=== PATIENT | female | born 1995 | race Caucasian/White ===

== ENCOUNTER 2016-11-19 21:17 | Emergency (ER) | payer OTHER, MEDICAID ==
[~2016-11-19] VITALS: Ht 162.5 cm; Wt 67.1 kg
[~2016-11-19 21:17] MED LIST: AMOXICILLIN500 MG PO; BACTRIM DS 8001 TA1 PO; COLACE100 MG PO; COMPAZINE10 MG PO; IRON325 M1 PO; KEFLEX500 MG PO; MACROBID100 M1 PO; NITROFURANTOIN100 M1 PO; NO DAILY MEDS; PRENATAL1 TA3 PO; PYRIDIUM100 MG PO; PYRIDIUM200 MG PO; TRAMADOL HCL50 MG PO; VICODIN 500 MG-1 TAB PO; ZANTAC150 MG PO; ZOFRAN ODT4 MG PO; ZOFRAN ODT4 MG SL
[2016-11-19 22:17] LABS: BILIRUBIN NEGATIVE (NEGATIVE); BLOOD NEGATIVE (NEGATIVE); CLARITY SL CLOUDY (CLEAR); COLOR YELLOW (YELLOW); GLUCOSE NEGATIVE (NEGATIVE); KETONE 1+ (NEGATIVE); LEUKO ESTERASE NEGATIVE (NEGATIVE); NITRITE POSITIVE (NEGATIVE); PROTEIN NEGATIVE (NEGATIVE); UROBILINOGEN 0.2 E.U./dl (0.2-1.0)
[2016-11-19 22:24] LABS: BACTERIA 4+; RBC 0-2 rbc/hpf (0-2)
[2016-11-19 22:25] LABS: URINE REFLEX COMMENT YES (NO)
[2016-11-19] MEDS ORDERED: DICLEGIS DR 101 EACH PO (22:39)
[2016-11-19] MEDS ORDERED: OMNICEF300 MG PO (22:39)
== END 2016-11-19 23:53 | disposition home or self-care (01) ==
LOC: ED 21:17
PROVIDERS: Physician Assistant
DX: O23.41 Unspecified infection of urinary tract in pregnancy, first trimester (principal); R11.2 Nausea with vomiting, unspecified; Z88.6 Allergy status to analgesic agent; Z90.49 Acquired absence of other specified parts of digestive tract; Z3A.09 9 weeks gestation of pregnancy

== ENCOUNTER 2016-12-02 20:04 | Emergency (ER) | payer OTHER, MEDICAID ==
[~2016-12-02] VITALS: Ht 162.5 cm; Wt 67.6 kg
[~2016-12-02 20:04] MED LIST changes: +DICLEGIS DR 101 EACH PO; +OMNICEF300 MG PO
[2016-12-02] MEDS ORDERED: PRENATAL1 TA3 PO (21:06)
== END 2016-12-02 22:59 | disposition home or self-care (01) ==
LOC: ED 20:04
DX: O9A.211 Injury, poisoning and certain other consequences of external causes complicating pregnancy, first trimester (principal); S40.011A Contusion of right shoulder, initial encounter; S40.022A Contusion of left upper arm, initial encounter; Y08.89XA Assault by other specified means, initial encounter; Y93.89 Activity, other specified; Y92.9 Unspecified place or not applicable; Y99.9 Unspecified external cause status; Z88.6 Allergy status to analgesic agent; Z3A.08 8 weeks gestation of pregnancy

== ENCOUNTER 2016-12-23 13:48 | Emergency (ER) | payer OTHER ==
[~2016-12-23] VITALS: Ht 162.5 cm; Wt 65.8 kg
[2016-12-23 14:12] LABS: BILIRUBIN NEGATIVE (NEGATIVE); BLOOD 1+ (NEGATIVE); CLARITY CLOUDY (CLEAR); COLOR YELLOW (YELLOW); GLUCOSE NEGATIVE (NEGATIVE); KETONE 3+ (NEGATIVE); LEUKO ESTERASE 2+ (NEGATIVE); NITRITE POSITIVE (NEGATIVE); PROTEIN 2+ (NEGATIVE)
[2016-12-23 14:20] LABS: EPITHELIAL CELLS TNTC; RBC 0-2 rbc/hpf (0-2); WBC 31-40 wbc/hpf (0-5)
[2016-12-23 14:21] LABS: BACTERIA 4+; URINE REFLEX COMMENT YES (NO)
[2016-12-23 14:57] LABS: BASO % 0.1 % (0.0-1.0); HEMATOCRIT 35.2 % (37.0-47.0); HEMOGLOBIN 11.9 g/dl (12.0-16.0); IG # 0.1 10*3/uL (0.0-0.1); LYMPH # 1.3 10*3/uL (1.3-4.4); LYMPH % 10.1 % (27.0-41.0); MEAN CELL VOLUME 88.9 fl (81.0-99.0); MEAN CORPUSCULAR HGB 30.1 pg (27.0-31.0); MEAN CORPUSCULAR HGB CONC 33.8 g/dl (33.0-37.0); MEAN PLATELET VOLUME 10.8 fl (9.6-12.3); MONO # 1.2 10*3/uL (0.1-1.0); MONO % 9.4 % (3.0-9.0); NEUT # 10.5 10*3/uL (2.3-7.9); PLATELET COUNT AUTOMATED 188 10*3/uL (130-400); RED BLOOD COUNT 3.96 10*6/uL (4.10-5.10); RED CELL DISTRI WIDTH 12.7 % (0-14.5); WHITE BLOOD COUNT 13.1 10*3/uL (4.8-10.8)
[2016-12-23 15:11] LABS: ALKALINE PHOSPHATASE 75 U/L (45-117); BILIRUBIN, TOTAL 0.4 mg/dl (0.2-1.0); BUN 4 mg/dl (7-24); CARBON DIOXIDE 25 mmol/L (21-32); CHLORIDE 97 mmol/L (98-107); EST GLOM FILT AFRICAN AMERICAN > 60 ml/min; GLUCOSE 98 mg/dL (65-99); POTASSIUM 3.9 mmol/L (3.5-5.1); SGOT/AST 6 IU/L (3-35); SGPT/ALT 15 U/L (12-78); SODIUM 132 mmol/L (136-145); TOTAL PROTEIN 7.1 gm/dL (6.4-8.2)
[2016-12-23] MEDS ORDERED: MACROBID100 M1 PO (19:20)
== END 2016-12-23 21:37 | disposition home or self-care (01) ==
LOC: ED 13:48
PROVIDERS: Physician Assistant
DX: O23.41 Unspecified infection of urinary tract in pregnancy, first trimester (principal); Z88.6 Allergy status to analgesic agent; Z79.899 Other long term (current) drug therapy; Z3A.12 12 weeks gestation of pregnancy

== ENCOUNTER 2017-08-26 15:30 | Emergency (ER) | payer OTHER ==
[~2017-08-26] VITALS: Ht 162.5 cm; Wt 70.3 kg
== END 2017-08-26 17:04 | disposition home or self-care (01) ==
LOC: ED 15:30
DX: S50.12XA Contusion of left forearm, initial encounter (principal); S60.211A Contusion of right wrist, initial encounter; Z98.890 Other specified postprocedural states; Z90.49 Acquired absence of other specified parts of digestive tract; Z88.6 Allergy status to analgesic agent; W19.XXXA Unspecified fall, initial encounter; Y93.89 Activity, other specified; Y92.59 Other trade areas as the place of occurrence of the external cause; Y99.9 Unspecified external cause status

== ENCOUNTER 2017-09-01 12:28 | Emergency (ER) | payer OTHER ==
[~2017-09-01] VITALS: Ht 165.1 cm; Wt 68.0 kg
== END 2017-09-01 14:34 | disposition home or self-care (01) ==
LOC: ED 12:28
DX: S90.31XA Contusion of right foot, initial encounter (principal); Z98.890 Other specified postprocedural states; Z79.899 Other long term (current) drug therapy; Z88.6 Allergy status to analgesic agent; W20.8XXA Other cause of strike by thrown, projected or falling object, initial encounter; Y93.89 Activity, other specified; Y92.89 Other specified places as the place of occurrence of the external cause; Y99.9 Unspecified external cause status

== ENCOUNTER 2018-06-12 13:54 | Inpatient (IN) | payer OTHER ==
--- NOTE | ~2018-06-12 | EKG ---
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
[2018-06-12 13:54] VITALS: BP 159/108
[2018-06-12 14:25] LABS: BASO % 0.3 % (0.0-1.0); EOS % 0.3 % (1.0-4.0); HEMATOCRIT 38.7 % (37.0-47.0); HEMOGLOBIN 13.5 g/dl (12.0-16.0); LYMPH # 2.2 10*3/uL (1.3-4.4); LYMPH % 29.1 % (27.0-41.0); MEAN CELL VOLUME 88.4 fl (81.0-99.0); MEAN CORPUSCULAR HGB 30.8 pg (27.0-31.0); MEAN CORPUSCULAR HGB CONC 34.9 g/dl (33.0-37.0); MEAN PLATELET VOLUME 9.9 fl (9.6-12.3); MONO # 0.5 10*3/uL (0.1-1.0); MONO % 6.5 % (3.0-9.0); NEUT # 4.7 10*3/uL (2.3-7.9); NEUT % 62.7 % (47.0-73.0); PLATELET COUNT AUTOMATED 263 10*3/uL (130-400); RED BLOOD COUNT 4.38 10*6/uL (4.10-5.10); RED CELL DISTRI WIDTH 14.1 % (0-14.5); WHITE BLOOD COUNT 7.5 10*3/uL (4.8-10.8)
[2018-06-12 14:34] LABS: ACT PARTIAL THROMBO TIME 20.2 SECONDS (20.8-31.5)
[2018-06-12 14:41] LABS: ALKALINE PHOSPHATASE 77 U/L (45-117); BUN 13 mg/dl (7-24); CHLORIDE 102 mmol/L (98-107); CREATININE 1.06 mg/dL (0.55-1.02); POTASSIUM 3.5 mmol/L (3.5-5.1); SGOT/AST 139 IU/L (3-35); SGPT/ALT 179 U/L (12-78); SODIUM 139 mmol/L (136-145); TOTAL PROTEIN 7.5 gm/dL (6.4-8.2)
[2018-06-12 14:43] LABS: B-hCG (QUALITATIVE) NEGATIVE (NEGATIVE); ETHYL ALCOHOL < 3.0 mg/dl (<3); TROPONIN I 0.016 ng/ml (<0.045)
[2018-06-12 14:45] VITALS: BP 152/102
[2018-06-12 15:11] VITALS: BP 154/108
[2018-06-12 15:58] VITALS: BP 144/106
[2018-06-12 16:06] LABS: BILIRUBIN NEGATIVE (NEGATIVE); BLOOD TRACE-INTACT (NEGATIVE); CLARITY SL CLOUDY (CLEAR); COLOR YELLOW (YELLOW); GLUCOSE 1+ (NEGATIVE); KETONE NEGATIVE (NEGATIVE); LEUKO ESTERASE NEGATIVE (NEGATIVE); NITRITE NEGATIVE (NEGATIVE); SPECIFIC GRAVITY 1.025 (1.005-1.030); UROBILINOGEN 0.2 E.U./dl (0.2-1.0)
[2018-06-12 16:10] LABS: URINE AMPHETAMINES > 1000 (1000ng/ml); URINE BARBITURATES < 200 (200ng/ml); URINE BENZODIAZEPINES < 200 (200ng/ml); URINE CANNABINOIDS (THC) > 50 (50ng/ml); URINE COCAINE > 300 (300ng/ml); URINE METHADONE < 300 (300ng/ml); URINE OPIATES < 300 (300ng/ml)
[2018-06-12 16:11] LABS: URINE PHENCYCLIDINE < 25 (25ng/ml)
[2018-06-12 16:19] LABS: BACTERIA 3+
[2018-06-12 16:40] VITALS: BP 148/106
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
--- NOTE | 2018-06-12 17:36 | NUR ---
Dr. Mcpherson was notified of elevated troponin. Admission orders were recieved. Keo Hernandez was notified of SS consult.
[2018-06-12 20:00] VITALS: BP 146/88
--- NOTE | 2018-06-12 20:06 | NUR ---
PT. RESTING IN BED TEXTING AND TALKING TO SISTER/VISITOR. IVF CONTINUE ORDERED VIA BAKARI, SITE ASYMPT. LUNGS CLEAR BILAT, UNABLE TO TAKE DEEP BREATH DUE TO PRIOR CPR SORENESS. ABDOMEN SOFT, NONDISTENDED AND NORMO. NO PERIPHERAL EDEMA NOTED. RESP. EASY AND REG, NO DISTRESS. ALISHA TADEO RN
--- NOTE | 2018-06-12 22:19 | NUR ---
PT'S IV REMOVED DUE TO PT STATING PAIN AT SITE FROM BENDING ARM (IV SITE IN BAKARI). PT. STATED BLEEDING AT SITE, LEAKING IVF IN REALITY. NEW IV ATTEMPT TO BE INSERTED. DR. SZYMANSKI NOTIFIED OF PT'S DESIRE TO LEAVE AMA. HR 120-130'S, B/P 140-150'S/90-100'S. DR. SZYMANSKI PINK-SLIPPED UNTIL STABLE. WILL RE-EVALUATED IN AM. PT. INFORMED SHE CANNOT LEAVE AND MUST STAY THE NIGHT UNTIL RE-EVALUATED IN AM. ALISHA TADEO RN
[2018-06-13] VITALS: BP 125/77
[2018-06-13 04:00] VITALS: BP 127/86
[2018-06-13 04:57] LABS: BASO % 0.2 % (0.0-1.0); EOS # 0.1 10*3/uL (0.0-0.4); EOS % 0.8 % (1.0-4.0); HEMATOCRIT 33.6 % (37.0-47.0); LYMPH # 3.3 10*3/uL (1.3-4.4); LYMPH % 36.1 % (27.0-41.0); MEAN CELL VOLUME 90.3 fl (81.0-99.0); MEAN CORPUSCULAR HGB 30.1 pg (27.0-31.0); MEAN CORPUSCULAR HGB CONC 33.3 g/dl (33.0-37.0); MEAN PLATELET VOLUME 10.6 fl (9.6-12.3); MONO # 0.9 10*3/uL (0.1-1.0); MONO % 9.4 % (3.0-9.0); NEUT # 4.9 10*3/uL (2.3-7.9); NEUT % 53.3 % (47.0-73.0); PLATELET COUNT AUTOMATED 201 10*3/uL (130-400); RED BLOOD COUNT 3.72 10*6/uL (4.10-5.10); RED CELL DISTRI WIDTH 14.3 % (0-14.5); WHITE BLOOD COUNT 9.2 10*3/uL (4.8-10.8)
[2018-06-13 05:07] LABS: HEMOGLOBIN 11.2 g/dl (12.0-16.0)
[2018-06-13 05:18] LABS: ALBUMIN 3.6 gm/dl (3.1-4.5); BUN 8 mg/dl (7-24); CHLORIDE 104 mmol/L (98-107); CREATININE 0.62 mg/dL (0.55-1.02); POTASSIUM 3.3 mmol/L (3.5-5.1); SGOT/AST 49 IU/L (3-35); SGPT/ALT 104 U/L (12-78); SODIUM 137 mmol/L (136-145); TOTAL PROTEIN 6.3 gm/dL (6.4-8.2)
[2018-06-13 05:19] LABS: ALKALINE PHOSPHATASE 59 U/L (45-117)
[2018-06-13 08:00] VITALS: BP 116/81
--- NOTE | 2018-06-13 08:00 | NUR ---
RESTING IN BED. DENIES ANY COMPLAINTS. ALERT AND ORIENTED TIMES THREE. VITALS STABLE. PULSE OX 98% ON ROOM AIR. NO EDEMA NOTED.
[2018-06-13 12:00] VITALS: BP 109/71
--- NOTE | 2018-06-13 12:04 | NUR ---
met with client, she is pleasant, sleepy, she denies to me that she is having any suicidal thoughts and denies that was a suicide attempt,she reports that she has used drugs for a long time, she said that she was getting high and was not trying to kill herself, she said that she is trying to get her kids back and she goes to [facility] week in [place], [place] for treatment. she would mot meet criteria for inpatient psych, she should follow at [facility].
--- NOTE | 2018-06-13 13:41 | NUR ---
Discharge instructions reviewed with patient/family. Patient receptive and verbalizes understanding. Follow-up care arranged. Written instructions given to patient/family. TRUMAN ENCISO
== END 2018-06-13 13:41 | disposition home or self-care (01) | DRG 918 ==
LOC: ED 13:54 → ICCU 15:47 → EDHOLD 15:47 → ICCU 16:04
PROVIDERS: Emergency Medicine; ADMIT Internal Medicine
DX: T40.2X1A Poisoning by other opioids, accidental (unintentional), initial encounter (principal); S29.8XXA Other specified injuries of thorax, initial encounter; F14.10 Cocaine abuse, uncomplicated; S29.9XXA Unspecified injury of thorax, initial encounter; X58.XXXA Exposure to other specified factors, initial encounter; Y93.89 Activity, other specified; Y92.89 Other specified places as the place of occurrence of the external cause; Y99.8 Other external cause status; Z88.6 Allergy status to analgesic agent; Z87.440 Personal history of urinary (tract) infections; Z80.1 Family history of malignant neoplasm of trachea, bronchus and lung; R79.89 Other specified abnormal findings of blood chemistry

== ENCOUNTER 2019-02-04 17:03 | Emergency (ER) | payer OTHER | END 2019-02-04 17:24 | disposition left against medical advice (07) | LOC: ED 17:03 | DX: R06.89 Other abnormalities of breathing (principal); Z53.21 Procedure and treatment not carried out due to patient leaving prior to being seen by health care provider; Z88.6 Allergy status to analgesic agent ==

== ENCOUNTER 2019-03-08 08:54 | Emergency (ER) | payer OTHER ==
[~2019-03-08] VITALS: Ht 162.5 cm; Wt 59.0 kg
--- NOTE | ~2019-03-08 | EKG ---
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
== END 2019-03-08 10:36 | disposition home or self-care (01) ==
LOC: ED 08:54
DX: T50.901A Poisoning by unspecified drugs, medicaments and biological substances, accidental (unintentional), initial encounter (principal); R40.20 Unspecified coma; R07.89 Other chest pain; R11.0 Nausea; F14.10 Cocaine abuse, uncomplicated; F11.10 Opioid abuse, uncomplicated; Z88.6 Allergy status to analgesic agent; Z88.8 Allergy status to other drugs, medicaments and biological substances; Y92.89 Other specified places as the place of occurrence of the external cause

== ENCOUNTER 2019-09-27 11:50 | Emergency (ER) | payer OTHER ==
[~2019-09-27] VITALS: Ht 162.5 cm; Wt 56.7 kg
[2019-09-27] MEDS ORDERED: ERYTHROMYCIN OPH1 GM OPH (12:19)
[2019-09-27 12:33] LABS: BILIRUBIN NEGATIVE (NEGATIVE); CLARITY SL CLOUDY (CLEAR); COLOR YELLOW (YELLOW); GLUCOSE NEGATIVE (NEGATIVE)
[2019-09-27 12:34] LABS: BLOOD NEGATIVE (NEGATIVE); KETONE NEGATIVE (NEGATIVE); LEUKO ESTERASE TRACE (NEGATIVE); PH 6.5 (5.0-9.0); UROBILINOGEN 0.2 E.U./dl (0.2-1.0)
[2019-09-27 12:39] LABS: BACTERIA 4+; MUCOUS 1+; NITRITE POSITIVE (NEGATIVE); WBC 21-30 wbc/hpf (0-5)
[2019-09-27 12:43] LABS: URINE AMPHETAMINES > 1000 (1000ng/ml); URINE BARBITURATES < 200 (200ng/ml); URINE BENZODIAZEPINES < 200 (200ng/ml); URINE CANNABINOIDS (THC) > 50 (50ng/ml); URINE COCAINE < 300 (300ng/ml); URINE METHADONE < 300 (300ng/ml); URINE OPIATES > 300 (300ng/ml); URINE PHENCYCLIDINE < 25 (25ng/ml)
[2019-09-29 17:10] LABS: GONOCOCCUS BY NAA Positive (Negative)
== END 2019-09-27 13:18 | disposition home or self-care (01) ==
LOC: ED 11:50
PROVIDERS: Nurse Practitioner Family
DX: H10.9 Unspecified conjunctivitis (principal); Z88.8 Allergy status to other drugs, medicaments and biological substances; Z79.82 Long term (current) use of aspirin